=== PATIENT | female | born 1955 | race Caucasian/White ===

== ENCOUNTER 2017-01-19 09:43 | Emergency (ER) | payer MEDICAID ==
[2017-01-19] MEDS ORDERED: LIDOCAINE 5% (700 MG) TRANSDERMAL ADH..PATCH TP ONE (10:13)
[2017-01-19] MEDS ORDERED: NAPROXEN 250 MG TABLET PO ONE (10:13)
--- NOTE | 2017-01-19 10:16 | ER Document Report ---
ED Neck/Back Problem - General Chief Complaint: Low Back Pain Stated Complaint: BACK PAIN Notes: The patient is a 61-year-old female, past medical history chronic low back pain (on disability for this), hypertension, presents with 1 week of worsening right lower back pain and right flank pain. Yesterday, she was having dribbling of her urine, but was able to urinate fully this morning. She saw her primary care physician 5 days ago was started on [place] for her back pain. In addition, she is waking up and vomiting in the morning for the past few weeks. She denies injury, saddle anesthesia, fevers, current nausea or vomiting, chest pain , shortness of breath, numbness, weakness or difficulty walking. TRAVEL OUTSIDE OF THE [place] IN LAST 30 DAYS: No - Related Data Allergies/Adverse Reactions: No Known Allergies Allergy (Verified 01/19/17 09:48) Past Medical History - General Information source: Patient - Social History Smoking Status: Current Every Day Smoker Chew tobacco use (# tins/day): No Frequency of alcohol use: None Drug Abuse: None Family History: Arthritis, CAD - Mother father brother and sister have all had heart attacks, Hyperlipidemia, Hypertension, Malignancy Patient has suicidal ideation: No Patient has homicidal ideation: No - Past Medical History Cardiac Medical History: Reports: Hx Hypercholesterolemia, Hx Hypertension Denies: Hx Coronary Artery Disease, Hx Heart Attack Pulmonary Medical History: Reports: Hx Asthma, Hx Pneumonia - 1999, Hx Sleep Apnea Denies: Hx Bronchitis, Hx COPD Neurological Medical History: Denies: Hx Cerebrovascular Accident, Hx Seizures Renal/ Medical History: Denies: Hx Peritoneal Dialysis GI Medical History: Reports: Hx Gastroesophageal Reflux Disease. Denies: Hx Cirrhosis, Hx Hepatitis Musculoskeltal Medical History: Reports Hx Arthritis Psychiatric Medical History: Reports: Hx Depression Infectious Medical History: Denies: Hx Hepatitis Past Surgical History: Reports: Hx Appendectomy, Hx Cholecystectomy, Hx Hysterectomy - partial, Hx Orthopedic Surgery - left shoulder, left ankle ORIF. Denies: Hx Pacemaker - Immunizations Immunizations up to date: No Hx Diphtheria, Pertussis, Tetanus Vaccination: Yes Hx Pneumococcal Vaccination: 11/18/09 Review of Systems - Review of Systems Notes: REVIEW OF SYSTEMS: CONSTITUTIONAL: -fevers, -chills EENT: -eye pain, -difficulty swallowing, -nasal congestion CARDIOVASCULAR:-chest pain, -syncope. RESPIRATORY: -cough, -SOB GASTROINTESTINAL: -abdominal pain, -nausea, +vomiting, -diarrhea GENITOURINARY: -dysuria, -hematuria MUSCULOSKELETAL: +back pain, -neck pain SKIN: -rash or skin lesions. HEMATOLOGIC: -easy bruising or bleeding. LYMPHATIC: -swollen, enlarged glands. NEUROLOGICAL: -altered mental status or loss of consciousness, -headache, - neurologic symptoms PSYCHIATRIC: -anxiety, -depression. ALL OTHER SYSTEMS REVIEWED AND NEGATIVE. Physical Exam - Vital signs Vitals: Temp Pulse Resp BP Pulse Ox 98.2 F 133 H 18 110/71 99 01/19/17 09:47 01/19/17 09:47 01/19/17 09:47 01/19/17 09:47 01/19/17 09:47 - Notes Notes: PHYSICAL EXAMINATION: GENERAL: Well-nourished and in mild acute distress. HEAD: Atraumatic, normocephalic. EYES: Pupils equal round and reactive to light, extraocular movements intact, sclera anicteric, conjunctiva are normal. ENT: nares patent, oropharynx clear without exudates. Moist mucous membranes. NECK: Normal range of motion, supple without lymphadenopathy LUNGS: Breath sounds clear to auscultation bilaterally and equal. No wheezes rales or rhonchi. HEART: Regular rhythm without murmurs. Tachycardic. ABDOMEN: Soft, nontender, normoactive bowel sounds. No guarding, no rebound. No masses appreciated. EXTREMITIES: Right lumbar paraspinal tenderness. Strong distal pulses. 5/5 strength in all 4 extremities. NEUROLOGICAL: Cranial nerves grossly intact. Normal speech, normal gait. Normal sensory, motor, and reflex exams. PSYCH: Normal mood, normal affect. SKIN: Warm, Dry, normal turgor, no rashes or lesions noted. Course - Re-evaluation Re-evalutation: Patient with no red flag signs for low back pain. Urinalysis shows 9 WBCs with small leuk esterase. With her mild dysuria, will treat her with Keflex for UTI and possible early pyelonephritis. After Naprosyn and Lidoderm patch, patient is having actually no pain. She is requesting discharge. Repeat heart rate is 130. Told her that she should stay to get blood work and further evaluation of this tachycardia. She said that her heart rate is always in the 130s and she has seen her primary care physician for this, but she has not been referred to a freedom of information officer. She has no shortness of breath or chest pain to suggest PE and no palpitations. Patient completely asymptomatic and requesting discharge again. Spoke to her about risks of leaving, including PA, and disability , but she said that she'll follow up with her primary care physician for further evaluation. She signed AMA form. Will send home with Naprosyn, Lidoderm patch and Keflex with strict return precautions and instructions to return at any time for further evaluation. - Vital Signs Vital signs: Temp Pulse Resp BP Pulse Ox 98.2 F 131 H 18 105/83 98 01/19/17 09:47 01/19/17 11:22 01/19/17 09:47 01/19/17 11:22 01/19/17 11:22 - Laboratory Laboratory results interpreted by me: 01/19/17 10:34 Urine Ketones TRACE H Ur Leukocyte Esterase SMALL H Discharge - Discharge Clinical Impression: Tachycardia, Dysuria Low back pain Qualifiers: Chronicity: chronic Back pain laterality: bilateral Sciatica presence: without sciatica Qualified Code(s): M54.5 - Low back pain Condition: Stable Disposition: AGAINST MEDICAL ADVICE Additional Instructions: Take the Naprosyn every 12 hours with food and use the Lidoderm patch to help with your back pain. Your heart rate was elevated today in the ER. Since you were feeling better, you did not want further evaluation at this time. You must have this rechecked by your primary care physician this week. Return immediately if you have worsening pain, shortness of breath or any other concerns. LOW BACK PAIN: Three out of every four people will have an episode of disabling back pain during their lifetime. Most commonly the pain is due to straining of the muscles and ligaments in the low back. Usual treatment includes: (1) Rest on a firm surface. Avoid lying on your stomach. (2) Ice pack the painful area. After a few days, gentle heat may be used intermittently to relax the area, or ice packs can be continued. (3) Medication may be needed -- muscle relaxers and antiinflammatory medicines are commonly used. (4) As the back improves, exercises are prescribed to strengthen the back and abdominal muscles. Your doctor will advise you on the proper care for your back at each stage in your recovery. You may be better in a few days -- or healing may take several weeks. If new symptoms of a "herniated disc" (radiation of pain, numbness, or tingling down the back of the leg or weakness in the leg) occur, you should be re-examined. Further testing may be necessary. ORAL NARCOTIC MEDICATION: You have been given a prescription for pain control. This medication is a narcotic. It's best taken with food, as nausea can result if taken on an empty stomach. Don't operate machinery or drive within six hours of taking this medication. Do not combine this medicine with alcohol, or with any medication which can cause sedation (such as cold tablets or sleeping pills) unless you get permission from the physician. Narcotics tend to cause constipation. If possible, drink plenty of fluids and eat a diet high in fiber and fruits. Please be aware that prescription narcotics also have the potential for abuse. People become addicted to these medications because of the general sense of wellbeing that they induce. This feeling along with a significant reduction in tension, anxiety, and aggression provides a stimulating seductive quality to these drugs. Once your pain is under control, we encourage you to discard your unused narcotics. MUSCLE RELAXERS: Muscle relaxing medications are usually prescribed for acute muscle spasm or injury to the neck and back. They are often combined with antiinflammatory pain medication for increased relief. You may stop the muscle relaxer when the pain and stiffness have improved. Start the medication again if spasms recur. Muscle relaxers may cause drowsiness, especially with the first dose. Do not operate machinery or drive while under the effects of the medication. Most muscle relaxers last up to 24 hours. Do not combine the medication with alcohol. ICE PACKS: Apply ice packs frequently against the painful area. Many different schedules are recommended, such as "20 minutes on, 20 minutes off" or "one hour ice, two hours rest." If you need to work, you may need to go longer between ice treatments. You should plan to have the area ice packed AT LEAST one fourth of the time. The ice should be applied over the wrap, tape, or splint, or over a layer of cloth -- not directly against the skin. Some ice bags have a built-in cloth and can be put directly on the skin. WARM PACKS: After approximately two days, apply gentle heat (such as a heating pad or hot water bottle) for about 20 to 30 minutes about every two hours -- at least four times daily. Warmth and elevation will help you make a more rapid recovery , and will ease the pain considerably. Do not use HOT heat, and never apply heat for longer than 30 minutes. The continuous heat can invisibly damage skin and muscles -- even when no burn is seen on the surface. Damaged muscles can make you MORE sore. FOLLOW-UP CARE: If you have been referred to a physician for follow-up care, call the physician s office for an appointment as you were instructed or within the next two days. If you experience worsening or a significant change in your symptoms, notify the physician immediately or return to the Emergency Department at any time for re-evaluation. URINARY TRACT INFECTION: Your evaluation indicates that you have a urinary tract infection. This is due to germs growing in the bladder. This is a common problem. This infection usually responds quickly to antibiotics. Your antibiotic should be taken exactly as prescribed. Drink plenty of fluids -- three to four quarts a day. Occasionally, a bladder anesthetic will be prescribed to help stop the feeling of urgency until the antibiotic has a chance to clear the infection. This may cause your urine to be dark orange. Certain urine infections require a culture. If the doctor obtained a culture, the results will be back in two days. You should call to see if a change in treatment is needed. A repeat urinalysis after you finish treatment is often recommended. The physician will let you know if further testing is required. Call the doctor if you develop fever, chills, flank pain, inability to urinate, or blood in the urine. ANTIBIOTIC THERAPY: You have been given an antibiotic prescription. It's important that you take all the medication, unless instructed otherwise by your physician. Failure to complete the entire course can result in relapse of your condition. Common side effects of antibiotics include nausea, intestinal cramping, or diarrhea. Women may develop vaginal yeast infections, and babies can get yeast (thrush) in the mouth following the use of antibiotics. Contact your physician if you develop significant side effects from this medication. Allergy to this antibiotic can result in hives, wheezing, faintness, or itching. If symptoms of allergy occur, stop the medication and call the doctor. CEPHALEXIN: The antibiotic you've been prescribed is a member of the cephalosporin class. This type of antibiotic covers a wide variety of infections, including those of the skin, lungs, and urinary tract. It's useful for staph infections. This antibiotic is slightly similar to the penicillin family. In rare cases , a person who is allergic to penicillin will also be allergic to this medication. If you have had a severe allergic reaction to penicillin, and have not taken this antibiotic since that time, notify your doctor. Antibiotics which cover many germs ("broad spectrum" antibiotics) are more likely to cause diarrhea or "yeast" infections. Women prone to vaginal yeast problems may suffer an attack after taking this antibiotic. In infants, oral thrush (white spots "stuck" on the cheek) or yeast diaper rash may result. See your doctor if these problems occur. Call at once if you develop itching, hives , shortness of breath, or lightheadedness. FOLLOW-UP CARE: If you have been referred to a physician for follow-up care, call the physician s office for an appointment as you were instructed or within the next two days. If you experience worsening or a significant change in your symptoms, notify the physician immediately or return to the Emergency Department at any time for re-evaluation. Prescriptions: Cephalexin Monohydrate [Keflex 500 mg Capsule] 500 mg PO Q8H #21 capsule Lidocaine [Lidoderm 5% (700 mg) Transdermal Patch] 1 patch TP DAILY #14 adh..patch Naproxen [Naprosyn 250 mg Tablet] 500 mg PO Q12H PRN 15 Days PRN Reason: Referrals: CECY BARNES DO [Primary Care Provider] - Follow up as needed
[2017-01-19 11:06] LABS: APPEARANCE,URINE CLOUDY; BILIRUBIN,URINE NEGATIVE (NEGATIVE); GLUCOSE, URINE NEGATIVE (NEGATIVE); KETONES,URINE TRACE mg/dL (NEGATIVE); LEUKOCYTE ESTERASE,URINE SMALL (NEGATIVE); NITRITE,URINE NEGATIVE (NEGATIVE); PROTEIN,URINE NEGATIVE (NEGATIVE); URINE SPECIFIC GRAVITY 1.009; UROBILINOGEN,URINE NEGATIVE mg/dL (<2.0)
[2017-01-19 11:24] VITALS: BP 105/83
== END 2017-01-19 11:50 | disposition left against medical advice (07) ==
LOC: ER 09:43
DX: G89.29 Other chronic pain (principal); M54.5 Low back pain; N39.0 Urinary tract infection, site not specified; R30.0 Dysuria; R00.0 Tachycardia, unspecified; R11.10 Vomiting, unspecified; I10 Essential (primary) hypertension; J45.909 Unspecified asthma, uncomplicated; F17.200 Nicotine dependence, unspecified, uncomplicated
CPT/HCPCS: 99283; 81001; J3490 ×2

== ENCOUNTER 2017-01-26 16:50 | Observation (INO) | payer MEDICAID ==
--- NOTE | 2017-01-26 17:01 | ER Document Report ---
ED Medical Screen (RME) - General Stated Complaint: DIZZINESS Mode of Arrival: Wheelchair Information source: Patient Notes: Patient presents to the emergency department with back pain and dizziness. Patient was treated in the emergency department discharged with antibiotic and Naprosyn last week. Pt reports she fell getting in the car. Denies f/v/d. PT reports she cannot walk due to pain. Pt was visualized walking in the ED. I have greeted and performed a rapid initial assessment of this patient. A comprehensive ED assessment and evaluation of the patient, analysis of test results and completion of the medical decision making process will be conducted by additional ED providers. TRAVEL OUTSIDE OF THE [place] IN LAST 30 DAYS: No - Related Data Allergies/Adverse Reactions: No Known Allergies Allergy (Verified 01/26/17 16:59) Past Medical History - Past Medical History Cardiac Medical History: Reports: Hx Hypercholesterolemia, Hx Hypertension Denies: Hx Coronary Artery Disease, Hx Heart Attack Pulmonary Medical History: Reports: Hx Asthma, Hx Pneumonia - 2000, Hx Sleep Apnea Denies: Hx Bronchitis, Hx COPD Neurological Medical History: Denies: Hx Cerebrovascular Accident, Hx Seizures Renal/ Medical History: Denies: Hx Peritoneal Dialysis GI Medical History: Reports: Hx Gastroesophageal Reflux Disease. Denies: Hx Cirrhosis, Hx Hepatitis Musculoskeltal Medical History: Reports Hx Arthritis Psychiatric Medical History: Reports: Hx Depression Infectious Medical History: Denies: Hx Hepatitis Past Surgical History: Reports: Hx Appendectomy, Hx Cholecystectomy, Hx Hysterectomy - partial, Hx Orthopedic Surgery - left shoulder, left ankle ORIF. Denies: Hx Pacemaker - Immunizations Immunizations up to date: No Hx Diphtheria, Pertussis, Tetanus Vaccination: Yes
[2017-01-26 18:52] LABS: HEMATOCRIT 36.3 % (36.0-47.0); HEMOGLOBIN 12.6 g/dL (12.0-15.5); HGB HCT DIFFERENCE 1.5; MEAN CORPUSCULAR HEMOGLOBIN 36.1 pg (27.0-33.4); MEAN CORPUSCULAR HGB CONC 34.6 g/dL (32.0-36.0); MEAN CORPUSCULAR VOLUME 104 fl (80-97); RED BLOOD COUNT 3.49 10^6/uL (3.72-5.28); RED CELL DISTRIBUTION WIDTH 14.7 % (11.5-14.0); WHITE BLOOD COUNT 3.4 10^3/uL (4.0-10.5)
[2017-01-26 19:06] LABS: BASOPHILS % (MANUAL) 0 % (0-2); EOSINOPHILS % (MANUAL) 1 % (0-6); LYMPHOCYTES % (MANUAL) 31 % (13-45); TOTAL CELLS COUNTED 100
[2017-01-26 19:07] LABS: ALANINE AMINOTRANSFERASE 47 U/L (9-52); ALBUMIN 3.8 g/dL (3.5-5.0); ALKALINE PHOSPHATASE 280 U/L (38-126); ANION GAP 17 (5-19); ANISOCYTOSIS SLIGHT; ASPARTATE AMINO TRANSFERASE 78 U/L (14-36); BILIRUBIN,TOTAL 0.6 mg/dL (0.2-1.3); BLOOD UREA NITROGEN 3 mg/dL (7-20); CARBON DIOXIDE 18 mmol/L (22-30); CHLORIDE 92 mmol/L (98-107); CREATININE RESULT 0.49 mg/dL (0.52-1.25); GLUCOSE 80 mg/dL (75-110); LIPASE 165.3 U/L (23-300); POIKILOCYTOSIS SLIGHT; POTASSIUM 3.7 mmol/L (3.6-5.0); SODIUM 127.3 mmol/L (137-145); TEAR DROP CELLS SLIGHT; TOTAL PROTEIN 7.3 g/dL (6.3-8.2)
[2017-01-26] MEDS ORDERED: NORMAL SALINE 1000 ML 1,000 ML IV ONE (19:14)
[2017-01-26] MEDS ORDERED: LORAZEPAM INJ 2 MG/1 ML VIAL IV ONE (19:23)
--- NOTE | 2017-01-26 19:26 | ER Document Report ---
ED General - General Chief Complaint: Back Pain Stated Complaint: DIZZINESS Mode of Arrival: Wheelchair Information source: Patient, Relative Notes: 61-year-old alcoholic female presents with complaints of dizziness and back pain. Patient notes that she has been off balance. Denies any abdominal pain. Patient notes she's been having chronic back pain TRAVEL OUTSIDE OF THE [place] IN LAST 30 DAYS: No - HPI Onset: Other Onset/Duration: Intermittent Quality of pain: Achy Severity: Mild Pain Level: 1 Associated symptoms: Other Exacerbated by: Denies Relieved by: Denies Similar symptoms previously: Yes Recently seen / treated by doctor: Yes - Related Data Allergies/Adverse Reactions: No Known Allergies Allergy (Verified 01/26/17 16:59) Past Medical History - General Information source: Patient - Social History Smoking Status: Current Every Day Smoker Cigarette use (# per day): No Chew tobacco use (# tins/day): No Smoking Education Provided: No Frequency of alcohol use: Heavy Drug Abuse: None Family History: Arthritis, CAD - Mother father brother and sister have all had heart attacks, Hyperlipidemia, Hypertension, Malignancy Patient has suicidal ideation: No Patient has homicidal ideation: No - Past Medical History Cardiac Medical History: Reports: Hx Hypercholesterolemia, Hx Hypertension Denies: Hx Coronary Artery Disease, Hx Heart Attack Pulmonary Medical History: Reports: Hx Asthma, Hx Pneumonia - 2000, Hx Sleep Apnea Denies: Hx Bronchitis, Hx COPD Neurological Medical History: Denies: Hx Cerebrovascular Accident, Hx Seizures Renal/ Medical History: Denies: Hx Peritoneal Dialysis GI Medical History: Reports: Hx Gastroesophageal Reflux Disease. Denies: Hx Cirrhosis, Hx Hepatitis Musculoskeltal Medical History: Reports Hx Arthritis Psychiatric Medical History: Reports: Hx Depression Infectious Medical History: Denies: Hx Hepatitis Past Surgical History: Reports: Hx Appendectomy, Hx Cholecystectomy, Hx Hysterectomy - partial, Hx Orthopedic Surgery - left shoulder, left ankle ORIF. Denies: Hx Pacemaker - Immunizations Immunizations up to date: No Hx Diphtheria, Pertussis, Tetanus Vaccination: Yes Hx Pneumococcal Vaccination: 11/18/09 Review of Systems - Review of Systems Notes: REVIEW OF SYSTEMS: CONSTITUTIONAL : Denies fever, chills, or sweats. Denies recent illness. EENT: Denies eye, ear, throat, or mouth pain or symptoms. Denies nasal or sinus congestion or discharge. Denies throat, tongue, or mouth swelling or difficulty swallowing. CARDIOVASCULAR: Denies chest pain. Denies palpitations or racing or irregular heart beat. Denies ankle edema. RESPIRATORY: Denies cough, cold, or chest congestion. Denies shortness of breath, difficulty breathing, or wheezing. GASTROINTESTINAL: Denies abdominal pain or distention. Denies nausea, vomiting , or diarrhea. Denies blood in vomitus, stools, or per rectum. Denies black, tarry stools. Denies constipation. GENITOURINARY: Denies difficulty urinating, painful urination, burning, frequency, blood in urine, or discharge. FEMALE GENITOURINARY: Denies vaginal bleeding, heavy or abnormal periods, irregular periods. Denies vaginal discharge or odor. MUSCULOSKELETAL: Denies back or neck pain or stiffness. Denies joint pain or swelling. SKIN: Denies rash, lesions or sores. HEMATOLOGIC : Denies easy bruising or bleeding. LYMPHATIC: Denies swollen, enlarged glands. NEUROLOGICAL: Denies confusion or altered mental status. Denies passing out or loss of consciousness. Denies dizziness or lightheadedness. Denies headache. Denies weakness or paralysis or loss of use of either side. Denies problems with gait or speech. Denies sensory loss, numbness, or tingling. Denies seizures. PSYCHIATRIC: Denies anxiety or stress. Denies depression, suicidal ideation, or homicidal ideation. ALL OTHER SYSTEMS REVIEWED AND NEGATIVE. Dictation was performed using [employer] voice recognition software PHYSICAL EXAMINATION: GENERAL: Patient appears intoxicated HEAD: Atraumatic, normocephalic. EYES: Pupils equal round and reactive to light, extraocular movements intact, conjunctiva are normal. ENT: Nares patent, oropharynx clear without exudates. Moist mucous membranes. NECK: Normal range of motion, supple without lymphadenopathy LUNGS: Breath sounds clear to auscultation bilaterally and equal. No wheezes rales or rhonchi. HEART: Regular rate and rhythm without murmurs ABDOMEN: Soft, nontender, nondistended abdomen. No guarding, no rebound. No masses appreciated. Female : deferred Musculoskeletal: Normal range of motion, no pitting or edema. No cyanosis. NEUROLOGICAL: Cranial nerves grossly intact. Normal speech, normal gait. Normal sensory, motor exams PSYCH: Normal mood, normal affect. SKIN: Warm, Dry, normal turgor, no rashes or lesions noted. Physical Exam - Vital signs Vitals: Temp Pulse Resp BP Pulse Ox 97.5 F 124 H 18 120/93 H 96 01/26/17 16:55 01/26/17 16:55 01/26/17 16:55 01/26/17 16:55 01/26/17 16:55 Course - Re-evaluation Re-evalutation: 01/26/17 19:28 Physical examination notes the patient is intoxicated, I believe she has symptomatic hyponatremia secondary to her alcohol abuse. 01/26/17 19:50 01/26/17 19:53 Patient will be admitted to hospitalist service at this time, for hydration and evaluation for altered mental status - Vital Signs Vital signs: Temp Pulse Resp BP Pulse Ox 97.5 F 124 H 18 120/93 H 96 01/26/17 16:55 01/26/17 16:55 01/26/17 16:55 01/26/17 16:55 01/26/17 16:55 - Laboratory Result Diagrams: 01/26/17 18:37 01/26/17 18:37 Laboratory results interpreted by me: 01/26/17 01/26/17 01/26/17 18:37 18:37 19:05 WBC 3.4 L RBC 3.49 L MCV 104 H MCH 36.1 H RDW 14.7 H Sodium 127.3 L Chloride 92 L Carbon Dioxide 18 L BUN 3 L Creatinine 0.49 L AST 78 H Alkaline Phosphatase 280 H Ur Leukocyte Esterase TRACE H Critical Care Note - Critical Care Note Total time excluding time spent on procedures (mins): 31 Comments: 31 minutes of critical care time spent in direct contact evaluating and reevaluating the patient, treating symptoms, reviewing labs and studies and speaking with family and consultants excluding any procedures Discharge - Discharge Clinical Impression: Hyponatremia, Metabolic encephalopathy, Tachycardia Condition: Stable Disposition: ADMITTED OBSERVATION Admitting Provider: Hospitalist Unit Admitted: Telemetry
[2017-01-26 19:37] LABS: APPEARANCE,URINE SLIGHTLY-CLOUDY; BILIRUBIN,URINE NEGATIVE (NEGATIVE); GLUCOSE, URINE NEGATIVE (NEGATIVE); KETONES,URINE NEGATIVE (NEGATIVE); LEUKOCYTE ESTERASE,URINE TRACE (NEGATIVE); NITRITE,URINE NEGATIVE (NEGATIVE); PROTEIN,URINE NEGATIVE (NEGATIVE); URINE SPECIFIC GRAVITY 1.002; UROBILINOGEN,URINE NEGATIVE mg/dL (<2.0)
[2017-01-26 20:01] LABS: ADD ON TESTING BLD IN LAB ACKNOWLEDGE
[2017-01-26 20:14] LABS: CREATINE KINASE 45 U/L (30-135); MAGNESIUM 1.5 mg/dL (1.6-2.3)
[2017-01-26 20:29] LABS: CREATINE KINASE MB < 0.22 ng/mL (<4.55); TROPONIN I < 0.012 ng/mL
[2017-01-26 21:20] LABS: URINE BARBITURATES SCREEN NEGATIVE; URINE METHADONE SCREEN NEGATIVE; URINE OPIATES LOW NEGATIVE; URINE PHENCYCLIDINE SCREEN NEGATIVE
[2017-01-26] MEDS ORDERED: POTASSI CL 20 MEQ/NS 1L 1,000 ML IV PRN (21:28)
[2017-01-26] MEDS ORDERED: MAGNESIUM SULFATE/D5W 100 ML IV SCH (21:30)
[2017-01-26] MEDS ORDERED: IPRATROPIUM/ALBUTEROL 0.5-2.5 MG/3 ML AMPUL NEB PRN (21:41)
[2017-01-26] MEDS ORDERED: ACETAMINOPHEN 325 MG TABLET PO PRN (21:57)
--- NOTE | 2017-01-26 22:17 | PDOC H&P ---
History of Present Illness Admission Date/PCP: 01/26/17 20:38 arlene Patient complains of: dizzy, fall History of Present Illness: LEONARD PICKETT is a 61 year old female, occasional tobacco smoker, chronic beer drinker, with patient being very evasive when I tried to determine exactly how much she drinks, along with underlying hypertension, hyperlipidemia , asthma, sleep apnea, not on CPAP, esophageal reflux disease, arthritis, mild depression without suicidal or homicidal ideation who presents to the emergency room for evaluation of above complaints. Patient has been discussed with emergency room physician who evaluated the patient. She describes a 2 day history of mild dizziness. Some lightheadedness upon standing. Persistence of chronic back pain. Fell once at home the last 24 hours; no loss of consciousness or head trauma. No nausea vomiting, diarrhea or dysuria, chest or abdominal pain. No fever or shaking chills. Was seen in the emergency room one week ago for complaints of low back pain and dysuria. Left AGAINST MEDICAL ADVICE. Was given prescriptions for Keflex and Naprosyn and Lidoderm patch. Uncertain if she's taken the antibiotics as prescribed. Per emergency room nursing staff tonight, when they briefly stood patient for orthostatic vital signs, patient became tachycardic into the 150s. Resolved rather rapidly with seated and supine position, although patient remains tachycardic in the 120s. Laboratory results are listed in [facility] and are reviewed. X-ray summary results are listed below, with full report(s) reviewed. . EKG reviewed. March 06 of last year. Social history/personal habits: Engaged to be . Has adult children. On disability. Lives with fianc. 2 cigarettes a day. As noted above, was quite evasive when I attempted to determine how much beer she actually drinks. Denies illicit drug use. Allergies/adverse reactions NKDA. Home medications Home medications initially autopopulated into [facility] may not accurately reflect patient's true medications, dosages, and/or frequencies. Uncertain about her medication compliance, but suspect it is not the best, so to speak. Unfortunately, patient uncertain of medications/dosages/frequencies. Order has been entered for staff to contact family, outpatient physician, and/or pharmacy to more accurately determine medications, dosages, and frequencies and to contact physician when that has been accomplished. REVIEW OF SYSTEMS: Constitutional: No fever or chills. Eyes: Wears glasses. ENT: No swallowing problems or complaints. No hearing problems or complaints. Pulmonary: No current complaints. Cardiovascular: See History and Present Illness. Gastrointestinal: No current complaints, including nausea or vomiting. Skin: No current complaints, including rashes. Hematologic: Easy bruising. Neurologic: No current complaints, including numbness or tingling. Musculoskeletal: Chronic back pain Psychiatric: Mild depression; denies suicidal or homicidal ideation. Endocrine: No current complaints, including polyuria. Genitourinary: No current complaints, including dysuria. PHYSICAL EXAMINATION: 47.7 kg. Height is listed as 5 inches; order has been written for staff to please recheck her height. Blood pressure 108/87. Pulse 129 and regular. 98% saturation on room air. Respirations are 13 and unlabored. Temperature 97.5. Thin disheveled chronically ill-appearing female who appears a number of years older than her stated age. Pleasant awake alert and cooperative. Mildly anxious, without agitation. No tremor. Female emergency room practical nursing faculty Brisa is present. Female friend of patient is present; patient approves. Skin is warm and dry. No grossly obvious evidence of rash in areas of skin examined. No subcutaneous nodules palpated. ENT: Hearing grossly normal Mildly hard of hearing to normal conversation. Tongue midline on protrusion pink and slightly tacky. Eyes: No scleral icterus. Pupils equal and reactive to light at 4 mm. Nitta [place] conjunctivae. No raccoon eyes. Neck is supple and nontender to gentle active range of motion and palpation. Midline trachea. No palpable thyroid nodule mass enlargement or tenderness. Lymphatic: No palpable cervical or clavicular nodes. Neck and lymphatic exams limited by patient body habitus. Psychiatric: At best fair insight into acute and chronic medical issues. Oriented to time location and why here. Lungs: Auscultation reveals clear and equal breath sounds bilaterally. No use of accessory respiratory muscles. Cardiovascular: Heart regular rate and rhythm, without gallop murmur or rub. No carotid or abdominal aortic bruits. No ankle or pedal edema. Faintly palpable dorsalis pedis pulses. Abdomen: soft, , slightly distended nontender with positive bowel sounds. Unable to adequately evaluate abdomen for masses or organomegaly due to distention. Extremities: Hands and Feet are warm and dry. No calf tenderness to compression. No grossly obvious visual evidence of calf swelling. Gentle manipulation of all 4 extremities fails to reveal any obvious evidence of injury or instability to involved major joints. Neurologic: Cranial Nerves II through XII are grossly intact. Light touch intact at face, upper and lower extremities. Motor function of major muscle groups upper and lower extremities 5 over 5 and symmetric. Patellar reflexes absent. Absent Babinski. No nystagmus. No ankle clonus. No rigidity. Past Medical History Cardiac Medical History: Reports: Hyperlipidema, Hypertension Denies: Coronary Artery Disease, DVT, Myocardial Infarction, Pulmonary Embolism Pulmonary Medical History: Reports: Asthma, Pneumonia - 2000, Sleep Apnea - Does not use CPAP. Denies: Bronchitis, Chronic Obstructive Pulmonary Disease (COPD) EENT Medical History: Reports: Eyes - Glasses. Neurological Medical History: Denies: Hemorrhagic CVA, Ischemic CVA, Seizures Endocrine Medical History: Denies: Diabetes Mellitus Type 1, Diabetes Mellitus Type 2, Hyperthyroidism, Hypothyroidism Renal/ Medical History: Reports: Other - Occasional UTI. GI Medical History: Reports: Gastroesophageal Reflux Disease Denies: Cirrhosis, Hepatitis, Peptic Ulcer Disease Musculoskeltal Medical History: Reports: Arthritis Skin Medical History: Reports: None Psychiatric Medical History: Reports: Alcohol Dependency, Depression, Tobacco Dependency Denies: General Anxiety Disorder, Substance Abuse Hematology: Reports: Other - Easy bruising Denies: Anemia Infectious Medical History: Denies: Hepatitis B, Hepatitis C Past Surgical History Past Surgical History: Reports: Appendectomy, Cholecystectomy, Hysterectomy, Orthopedic Surgery - left shoulder, left ankle ORIF Social History Information Source: Patient, Emergency Med Personnel, [facility] Records Lives with: Other - Fianc Smoking Status: Current Every Day Smoker Frequency of Alcohol Use: Heavy Hx Recreational Drug Use: No Drugs: None Hx Prescription Drug Abuse: No Past Social History Note: Fianc - Advance Directive Resuscitation Status: Full Code Surrogate healthcare decision maker:: Fianc Family History Family History: Arthritis, CAD - Mother father brother and sister have all had heart attacks, Hyperlipidemia, Hypertension, Malignancy Parental Family History Reviewed: Yes Children Family History Reviewed: Yes Sibling(s) Family History Reviewed.: Yes Medication/Allergy Home Medications: RX: Naproxen [Naprosyn 250 mg Tablet] 500 mg PO Q12HP PRN 01/27/17 RX: Omeprazole 40 mg PO ACBRKFST 01/27/17 RX: Ondansetron HCl [Zofran 4 mg Tablet] 4 mg PO Q8HP PRN 01/27/17 Ciprofloxacin HCl [Cipro 500 mg Tablet] 500 mg PO BID #10 tablet 01/28/17 Methylprednisolone [Medrol Dosepack (4 mg/Tab) 21 Tab/Dosepak] 4 mg PO ASDIR PRN #21 tab.ds.pk 01/28/17 RX: Cyclobenzaprine HCl [Flexeril 10 mg Tablet] 10 mg PO TIDP PRN #30 tablet RX: Folic Acid [Folvite 1 mg Tablet] 1 mg PO DAILY #30 tablet 01/28/17 RX: Multivitamin [Tab-A-Javi (Multiple Vitamin) Tablet] 1 tab PO DAILY tablet 01/28/17 RX: Oxycodone HCl [Oxy-Ir 5 mg Tablet] 2.5 mg PO Q8HP PRN #20 tablet 01/28/17 RX: Thiamine HCl [Thiamine 100 mg Tablet] 100 mg PO DAILY #30 tablet 01/28/17 Allergies/Adverse Reactions: No Known Allergies Allergy (Verified 01/26/17 16:59) Physical Exam Vital Signs: Temp Pulse Resp BP Pulse Ox 97.5 F 150 H 18 123/95 H 96 01/26/17 16:55 01/26/17 20:54 01/26/17 16:55 01/26/17 20:54 01/26/17 16:55 Assessment & Plan - Diagnosis (1) Alcohol intoxication Qualifiers: Complication of substance-induced condition: with unspecified complication Qualified Code(s): F10.129 - Alcohol abuse with intoxication, unspecified Is this a current diagnosis for this admission?: YesPlan: Daily multivitamin thiamine and folic acid. When necessary oral Ativan. I have strongly encouraged patient not to get out of bed , to avoid a fall with injury. Knee high SCDs for DVT prophylaxis, along with subcutaneous heparin. Impression and plans were discussed with patient, who concurs. Time spent in evaluation and management of patient: 62 minutes. (2) Dizzy Is this a current diagnosis for this admission?: YesPlan: Orthostatic vital signs every 4 hours while awake. Start in the morning. 1 additional L of IV fluid. (3) Fall Qualifiers: Encounter type: initial encounter Qualified Code(s): W19.XXXA - Unspecified fall, initial encounter Is this a current diagnosis for this admission?: Yes (4) Hypomagnesemia Is this a current diagnosis for this admission?: YesPlan: Magnesium supplement. Follow-up level. (5) Hyponatremia Is this a current diagnosis for this admission?: YesPlan: Likely due to alcohol intake. One additional liter of IV fluid. Chemistry in the morning. (6) Tachycardia Is this a current diagnosis for this admission?: YesPlan: Suspected due at least partially to an element of dehydration. One additional liter of IV fluid. (7) Dehydration Is this a current diagnosis for this admission?: Yes (8) Alcohol dependency Qualifiers: Substance use status: with intoxication Complication of substance- induced condition: with unspecified complication Qualified Code(s): F10.229 - Alcohol dependence with intoxication, unspecified Is this a current diagnosis for this admission?: Yes (9) Elevated LFTs Is this a current diagnosis for this admission?: Yes (10) HTN (hypertension) Qualifiers: Hypertension type: essential hypertension Qualified Code(s): I10 - Essential (primary) hypertension Is this a current diagnosis for this admission?: YesPlan: Resume home medications as appropriate once these have been determined and reviewed.
[2017-01-26] MEDS: THIAMINE HCL 100 MG TABLET PO SCH (23:10)
[2017-01-27] MEDS: HEPARIN SOD (PORCINE) 5,000 UNIT/ML 1 ML SYRINGE SUBCUT SCH ×3 (00:09→21:25)
[2017-01-27] MEDS ORDERED: MAGNESIUM SULFATE/D5W 2 GM/200 ML RTUPB IV ONE (02:00)
[2017-01-27] MEDS ORDERED: MAGNESIUM SULFATE/D5W 1 GM/100 ML RTUPB IV ONE (02:00)
[2017-01-27] MEDS: LORAZEPAM 1 MG TABLET PO PRN ×2 (05:34→12:39)
[2017-01-27 06:56] LABS: ABSOLUTE LYMPHOCYTES (AUTO) 0.6 10^3/uL (0.5-4.7); ABSOLUTE MONOCYTES (AUTO) 0.4 10^3/uL (0.1-1.4); ABSOLUTE NEUT (AUTO) 2.8 10^3/uL (1.7-8.2); BASOPHILS % (AUTO) 0.2 % (0-2); EOSINOPHILS % (AUTO) 0.3 % (0-6); HEMATOCRIT 29.9 % (36.0-47.0); HGB HCT DIFFERENCE 1.3; LYMPHOCYTES % (AUTO) 15.9 % (13-45); MEAN CORPUSCULAR HEMOGLOBIN 36.5 pg (27.0-33.4); MEAN CORPUSCULAR HGB CONC 34.8 g/dL (32.0-36.0); MEAN CORPUSCULAR VOLUME 105 fl (80-97); MONOCYTES % (AUTO) 9.9 % (3-13); RED BLOOD COUNT 2.85 10^6/uL (3.72-5.28); RED CELL DISTRIBUTION WIDTH 14.7 % (11.5-14.0); SEGMENTED NEUTROPHILS % (AUTO) 73.7 % (42-78); WHITE BLOOD COUNT 3.8 10^3/uL (4.0-10.5)
[2017-01-27 07:00] LABS: HEMOGLOBIN 10.4 g/dL (12.0-15.5)
[2017-01-27 07:13] LABS: ALANINE AMINOTRANSFERASE 38 U/L (9-52); ALBUMIN 2.8 g/dL (3.5-5.0); ALKALINE PHOSPHATASE 210 U/L (38-126); ANION GAP 14 (5-19); ASPARTATE AMINO TRANSFERASE 73 U/L (14-36); BILIRUBIN,TOTAL 0.5 mg/dL (0.2-1.3); BLOOD UREA NITROGEN 3 mg/dL (7-20); CALCIUM 8.4 mg/dL (8.4-10.2); CARBON DIOXIDE 17 mmol/L (22-30); CHLORIDE 102 mmol/L (98-107); CREATININE RESULT 0.49 mg/dL (0.52-1.25); GLUCOSE 109 mg/dL (75-110); MAGNESIUM 2.3 mg/dL (1.6-2.3); POTASSIUM 3.8 mmol/L (3.6-5.0); SODIUM 132.6 mmol/L (137-145); TOTAL PROTEIN 5.5 g/dL (6.3-8.2)
[2017-01-27] MEDS ORDERED: POTASSI CL 20 MEQ/NS 1L 1,000 ML IV PRN (10:00)
--- NOTE | 2017-01-27 10:16 | PDOC PROGRESS REPORT ---
Subjective Progress Note for:: 01/27/17 Subjective:: Patient complains of back pain. She reports she had urinary tract infection and took antibiotics. Denies any fall at all. Patient denies any agitation, restlessness, withdrawal symptoms in the past. She complains of unable to walk. Denies any chills or fever. Feels dizzy on standing and walking. Physical Exam Vital Signs: Temp Pulse Resp BP Pulse Ox 98.3 F 120 H 16 109/76 100 01/27/17 07:38 01/27/17 07:38 01/27/17 07:38 01/27/17 07:38 01/27/17 07:38 Intake & Output 01/26/17 01/27/17 01/28/17 05:59 06:59 06:59 Intake Total Balance Weight General appearance: PRESENT: no acute distress, cooperative Head exam: PRESENT: normocephalic Eye exam: PRESENT: EOMI Mouth exam: PRESENT: moist, neck supple Neck exam: ABSENT: JVD Respiratory exam: PRESENT: clear to auscultation tania Cardiovascular exam: PRESENT: RRR, tachycardia. ABSENT: gallop GI/Abdominal exam: PRESENT: soft. ABSENT: distended, tenderness Extremities exam: PRESENT: other - Trace edema Musculoskeletal exam: PRESENT: other - Tender on the lumbosacral area mainly on the right Neurological exam: PRESENT: alert, awake Skin exam: PRESENT: dry, warm. ABSENT: cyanosis Results Laboratory Results: 01/27/17 06:46 01/27/17 06:46 01/27/17 01/27/17 06:46 06:46 WBC 3.8 L RBC 2.85 L Hgb 10.4 L D Hct 29.9 L MCV 105 H MCH 36.5 H MCHC 34.8 RDW 14.7 H Plt Count 176 Seg Neutrophils % 73.7 Lymphocytes % 15.9 Monocytes % 9.9 Eosinophils % 0.3 Basophils % 0.2 Absolute Neutrophils 2.8 Absolute Lymphocytes 0.6 Absolute Monocytes 0.4 Absolute Eosinophils 0.0 Absolute Basophils 0.0 Sodium 132.6 L Potassium 3.8 Chloride 102 Carbon Dioxide 17 L Anion Gap 14 BUN 3 L Creatinine 0.49 L Est GFR ( Amer) > 60 Est GFR (Non-Af Amer) > 60 Glucose 109 Calcium 8.4 Magnesium 2.3 Total Bilirubin 0.5 AST 73 H ALT 38 Alkaline Phosphatase 210 H Total Protein 5.5 L Albumin 2.8 L Impressions: Chest X-Ray 01/26/17 00:00 IMPRESSION: NO SIGNIFICANT RADIOGRAPHIC FINDING IN THE CHEST. Assessment & Plan - Diagnosis (1) Dizzy Is this a current diagnosis for this admission?: Yes (2) Hypomagnesemia Is this a current diagnosis for this admission?: Yes (3) Hyponatremia Is this a current diagnosis for this admission?: Yes (4) Alcohol dependency Qualifiers: Substance use status: with intoxication Complication of substance- induced condition: with unspecified complication Qualified Code(s): F10.229 - Alcohol dependence with intoxication, unspecified Is this a current diagnosis for this admission?: Yes (5) Abnormal urinalysis Is this a current diagnosis for this admission?: Yes (6) Elevated LFTs Is this a current diagnosis for this admission?: Yes (7) HTN (hypertension) Qualifiers: Hypertension type: essential hypertension Qualified Code(s): I10 - Essential (primary) hypertension Is this a current diagnosis for this admission?: Yes (8) Hyperlipidemia Qualifiers: Hyperlipidemia type: unspecified Qualified Code(s): E78.5 - Hyperlipidemia, unspecified Is this a current diagnosis for this admission?: Yes (9) GERD (gastroesophageal reflux disease) Qualifiers: Esophagitis presence: without esophagitis Qualified Code(s): K21.9 - Gastro-esophageal reflux disease without esophagitis Is this a current diagnosis for this admission?: Yes (10) Asthma Qualifiers: Asthma severity: unspecified severity Asthma complication type: uncomplicated Qualified Code(s): J45.909 - Unspecified asthma, uncomplicated Is this a current diagnosis for this admission?: Yes (11) Depression Qualifiers: Depression Type: unspecified Qualified Code(s): F32.9 - Major depressive disorder, single episode, unspecified Is this a current diagnosis for this admission?: Yes (12) Sleep apnea Qualifiers: Sleep apnea type: unspecified type Qualified Code(s): G47.30 - Sleep apnea, unspecified Is this a current diagnosis for this admission?: Yes - Time Time Spent with patient: 25-34 minutes - Plan Summary Plan Summary: We will begin physical therapy. Continue hydration and increase rate. Begin muscle relaxant, anti-inflammatory medication. Follow cultures.
[2017-01-27] MEDS: DOCUSATE SODIUM 100 MG CAPSULE PO SCH ×2 (10:44→17:54)
[2017-01-27] MEDS: MULTIVITAMIN TABLET PO SCH (10:45)
[2017-01-27] MEDS: FOLIC ACID 1 MG TABLET PO SCH (10:45)
[2017-01-27] MEDS: OXYCODONE HCL IR 5 MG TABLET PO PRN ×2 (10:45→18:45)
[2017-01-27] MEDS ORDERED: MELOXICAM 15 MG TABLET PO ONE (12:00)
[2017-01-27] MEDS ORDERED: DEXAMETHASONE SOD PHOS INJ 10 MG/1 ML VIAL IV ONE (12:00)
[2017-01-27] MEDS ORDERED: METOPROLOL TARTRATE PF/INJ 5 MG/5 ML SDV IV PRN (12:40)
[2017-01-27] MEDS ORDERED: ONDANSETRON HCL INJ/PF 4 MG/2 ML SDV IV PRN (12:40)
[2017-01-27] MEDS: TIZANIDINE HCL 4 MG TABLET PO SCH (17:54)
--- NOTE | 2017-01-27 20:07 | EKG REPORT ---
SEVERITY:- BORDERLINE ECG - SINUS TACHYCARDIA BORDERLINE REPOL ABNORMALITY, DIFFUSE LEADS : Confirmed by: Betzy Livingston 27-Jan-2017 20:06:00
[2017-01-28] MEDS: OXYCODONE HCL IR 5 MG TABLET PO PRN ×2 (03:00→13:39)
[2017-01-28 05:15] LABS: MAGNESIUM 1.7 mg/dL (1.6-2.3); PHOSPHORUS 3.2 mg/dL (2.5-4.5)
[2017-01-28] MEDS: HEPARIN SOD (PORCINE) 5,000 UNIT/ML 1 ML SYRINGE SUBCUT SCH (09:47)
[2017-01-28] MEDS: FOLIC ACID 1 MG TABLET PO SCH (09:49)
[2017-01-28] MEDS: TIZANIDINE HCL 4 MG TABLET PO SCH (09:49)
[2017-01-28] MEDS: LORAZEPAM 1 MG TABLET PO PRN (09:50)
[2017-01-28] MEDS: THIAMINE HCL 100 MG TABLET PO SCH (09:50)
[2017-01-28] MEDS: DOCUSATE SODIUM 100 MG CAPSULE PO SCH (09:50)
[2017-01-28] MEDS: MULTIVITAMIN TABLET PO SCH (09:50)
--- NOTE | 2017-01-28 11:13 | PDOC DISCHARGE SUMMARY ---
General - Admit/Disc Date/PCP Admission Date/Primary Care Provider: 01/26/17 21:42 Discharge Date: 01/28/17 - Discharge Diagnosis (1) Dizzy Is this a current diagnosis for this admission?: Yes (2) Hypomagnesemia Is this a current diagnosis for this admission?: Yes (3) Hyponatremia Is this a current diagnosis for this admission?: Yes (4) Alcohol dependency Is this a current diagnosis for this admission?: Yes (5) Abnormal urinalysis Is this a current diagnosis for this admission?: Yes (6) Elevated LFTs Is this a current diagnosis for this admission?: Yes (7) HTN (hypertension) Is this a current diagnosis for this admission?: Yes (8) Hyperlipidemia Is this a current diagnosis for this admission?: Yes (9) GERD (gastroesophageal reflux disease) Is this a current diagnosis for this admission?: Yes (10) Asthma Is this a current diagnosis for this admission?: Yes (11) Depression Is this a current diagnosis for this admission?: Yes (12) Sleep apnea Is this a current diagnosis for this admission?: Yes (13) Compression fracture of lumbar vertebra Is this a current diagnosis for this admission?: Yes - Additional Information Resuscitation Status: Full Code Discharge Diet: Cardiac - low-fat low-salt Discharge Activity: Activity As Tolerated, Balance Activity w/Rest, Slowly Increase Activity Home Medications: Naproxen [Naprosyn 250 mg Tablet] 500 mg PO Q12HP PRN 01/27/17 Omeprazole 40 mg PO ACBRKFST 01/27/17 Ondansetron HCl [Zofran 4 mg Tablet] 4 mg PO Q8HP PRN 01/27/17 Ciprofloxacin HCl [Cipro 500 mg Tablet] 500 mg PO BID #10 tablet 01/28/17 Cyclobenzaprine HCl [Flexeril 10 mg Tablet] 10 mg PO TIDP PRN #30 tablet Folic Acid [Folvite 1 mg Tablet] 1 mg PO DAILY #30 tablet 01/28/17 Methylprednisolone [Medrol Dosepack (4 mg/Tab) 21 Tab/Dosepak] 4 mg PO ASDIR PRN #21 tab.ds.pk 01/28/17 Multivitamin [Tab-A-Javi (Multiple Vitamin) Tablet] 1 tab PO DAILY tablet 01/28 Oxycodone HCl [Oxy-Ir 5 mg Tablet] 2.5 mg PO Q8HP PRN #20 tablet 01/28/17 Thiamine HCl [Thiamine 100 mg Tablet] 100 mg PO DAILY #30 tablet 01/28/17 Additional Information: Stop alcohol, follow up final report of urine culture as outpatient with primary care physician History of Present Illness Patient complains of: Back pain, dizziness and fall History of Present Illness: LEONARD PICKETT is a 61 year old female, with history of alcohol abuse, hypertension presents to the hospital because of back pain and a fall as well as dizziness. The patient is seen in the emergency room several days ago and the patient left AGAINST MEDICAL ADVICE had a urinary tract infection given cephalexin. Patient however denies any fall recently. The patient went to the emergency room for evaluation and was referred for admission. For details please refer to history and physical examination performed by the admitting physician. Hospital Course Hospital Course: The patient was admitted to telemetry. The patient complains of back pain more than the dizziness. She does not remember falling recently. She reported that she quit drinking alcohol since she was on antibiotic. Patient was hydrated with intravenous fluid and her dizziness resolved. However she has significant back pain that she is having difficulty trying to ambulate, she was tried on muscle relaxant, dose of steroid, anti-inflammatory w/ mobic and the patient's discomfort improved. She was able to get up from bed and go to the bathroom by herself. Her urine was cultured and growing gram-positive cocci in pairs as well as gram-negative rods. The patient was given a dose of Rocephin and eventually was discharged home on ciprofloxacin with instructions to follow up results of urine culture as outpatient with primary care physician. In terms of her back pain, lumbar spine x-ray did reveal compression deformity at L1 and L2 of indeterminate age. Patient was educated about the findings, options of treatment likewise discussed and advised to see Dr. Barclay for possible kyphoplasty on an outpatient basis. The rest of the hospital stays unremarkable. conference planner was consulted for home health physical therapy. Physical Exam Vital Signs: Temp Pulse Resp BP Pulse Ox 98.2 F 108 H 14 122/80 100 01/28/17 08:24 01/28/17 08:24 01/28/17 08:24 01/28/17 08:24 01/28/17 08:24 Intake & Output 01/27/17 01/28/17 01/29/17 06:59 06:59 06:59 Intake Total 2875 Balance 2875 Weight General appearance: PRESENT: no acute distress, cooperative Head exam: PRESENT: normocephalic Eye exam: PRESENT: EOMI Mouth exam: PRESENT: moist, neck supple Neck exam: ABSENT: JVD Respiratory exam: PRESENT: clear to auscultation tania Cardiovascular exam: PRESENT: RRR. ABSENT: gallop GI/Abdominal exam: PRESENT: normal bowel sounds, soft. ABSENT: distended, tenderness Extremities exam: ABSENT: pedal edema Neurological exam: PRESENT: alert, awake, oriented to person, oriented to place , oriented to time, oriented to situation Skin exam: PRESENT: dry, warm. ABSENT: cyanosis Results Laboratory Results: 01/27/17 06:46 01/27/17 06:46 01/28/17 04:41 Phosphorus 3.2 Magnesium 1.7 Impressions: Chest X-Ray 01/26/17 00:00 IMPRESSION: NO SIGNIFICANT RADIOGRAPHIC FINDING IN THE CHEST. Hip X-Ray 01/27/17 00:00 IMPRESSION: DJD. No fracture or bone lesion evident. Lumbar Spine X-Ray 01/27/17 00:00 IMPRESSION: 1. L1 and L2 compression deformities, new since November of 2015 but otherwise age indeterminate. Qualifiers PATEINT BEING DISCHARGED WITH ANY OF THE FOLLOWING DIAGNOSIS?: No Plan Discharge Plan: Follow-up with primary care physician in one week. Follow-up with Dr. Barclay pain management as outpatient in 1-2 weeks. Time Spent: Less than 30 Minutes
[2017-01-28] MEDS ORDERED: LEVOFLOXACIN 750 MG/D5W RTU 750 MG/150 ML RTUPB IV SCH (12:00)
[2017-01-28 12:14] VITALS: BP 107/80
== END 2017-01-28 14:08 | disposition home health service (06) ==
LOC: ER 16:50 → UNDOADMOB 20:38 → EH 20:38 → 5 01-27 00:07
PROVIDERS: ADMIT Family Medicine; ATTEND Family Medicine
DX: R42 Dizziness and giddiness (principal); E83.42 Hypomagnesemia; E87.1 Hypo-osmolality and hyponatremia; E86.0 Dehydration; R00.0 Tachycardia, unspecified; F10.229 Alcohol dependence with intoxication, unspecified; R82.90 Unspecified abnormal findings in urine; R79.89 Other specified abnormal findings of blood chemistry; I10 Essential (primary) hypertension; E78.5 Hyperlipidemia, unspecified; K21.9 Gastro-esophageal reflux disease without esophagitis; J45.909 Unspecified asthma, uncomplicated; F32.9 Major depressive disorder, single episode, unspecified; G47.00 Insomnia, unspecified; S32.020A Wedge compression fracture of second lumbar vertebra, initial encounter for closed fracture; S32.010A Wedge compression fracture of first lumbar vertebra, initial encounter for closed fracture; F17.200 Nicotine dependence, unspecified, uncomplicated
CPT/HCPCS: 93005; 99291; 96361; 96375; 96365; 36415 ×3; 87086; 82553; 80307 ×2; 82140; 82550; 83690; 83735 ×3; 84100; 84443; 85025 ×2; 87088; 80053 ×2; 81001; 84484; 87186; 71010; 72110; 73522; 93010; 97162; G0378 ×3; J3490 ×12; J1644 ×2; J2060; J3475; J2405; J7030; J3480 ×2; J1100; J1956